=== PATIENT | female | born 1965 | race Caucasian/White ===

== ENCOUNTER 2016-08-01 07:44 | Emergency (ER) | payer OTHER ==
[~2016-08-01] VITALS: Ht 167.6 cm; Wt 79.5 kg
[2016-08-01 07:45] VITALS: BP 171/98; RESP 15; O2SAT 99
--- NOTE | 2016-08-01 07:56 | ED.REPORT ---
HPI-Ear Pain/Problem/FB Date of Service August 01, 2016 ED Provider: Dr. Nikolai Torres The patient is a 51 year old female who presents to the ED due to left ear pain onset a few days ago. Pt reports left ear discharge and tenderness. She is not generally prone to ear infections and hasn't been swimming recently. She is able to open and close her jaw without complication. Pt denies fever, chills, and dizziness. Nursing Notes Stated Complaint: EAR INFECTION Chief Complaint: ENT & Mouth Nursing Notes Reviewed: Yes Allergies: Coded Allergies: No Known Allergies (Unverified , 08/01/16) Scheduled Ciprofloxacin/Hydrocortisone Otic Susp (Cipro HC Otic Susp) 10 Ml Drops.susp 3 DROP LEFT_EAR BID for 7 days Scheduled PRN Naproxen (Naproxen) 500 Mg Tab 500 MG PO BID PRN PRN For Pain General Time Seen by MD: 07:55 Chief Complaint Ear problem left Hx Obtained From: Patient Arrived By: Walk-in Onset Occurred: 2 days ago Symptom Duration: Since onset Location: : Entire ear Quality: Painful Severity: Current: Mild Recent Healthcare: No recent doctor visit, No recent hospitalization Similar Sx Previous: No Past Medical History Past Medical History denies Past Surgical History Rotator cuff surgery 2 C-sections Carpel tunnel bilateral Smoking History Unknown if Ever Smoker Social History Other Social History: From out of town Ambulatory Status Independent Review of Systems Constitutional: Denies: Chills, Fever Ears / Nose / Throat: Reports: Ear drainage left, Earache left, Denies: Ear drainage right, Hearing loss left, Nasal congestion Complete sys rev & neg: except as marked. Additional Review of Systems Neurologic: Denies: Dizziness Physical Exam Physical Exam Notes: Initial Vital Signs Vital Signs (First) Date Time Temp Pulse Resp B/P Pulse Ox O2 Delivery O2 Flow Rate FiO2 08/01/16 07:45 35.8 94 15 171/98 99 Room Air Initial VS: Reviewed General/Constitutional: Awake, Alert, Cooperative ENT: Tympanic membs NL pain with manipulation of left earlobe no mastoid swelling, redness, tenderness purulent debris and macerated ear canal Head / Eyes: Normocephalic, PERRL, EOMI Neck: Atraumatic, Supple Skin: Warm, Dry Neurologic: Oriented X3, Speech NL, No motor deficits Upper Extremity / MS: Full range of motion, No deformity Lower Extremity / Pelvis / MS: Full range of motion, No deformity Re-Eval/Medical Decision Counseled Regarding: Diagnosis, Lab results, Need for follow-up, When/why to return to ED Discharge & Departure Primary Impression: Rhinitis Rhinitis type: unspecified Qualified Code: J31.0 - Chronic rhinitis Disposition: Home Discharge Condition All VS Reviewed: Yes Condition: Stable Patient Instructions: Otitis Externa (ED) Additional Instructions: Thank you for entrusting us with your care today. You have an ear infection called otitis externa. I am sending you home with antibiotics and ear drops. Use hot compresses and Tylenol to help with pain as well. Please take medication as directed. Return to the Emergency Department if you experience any new or worsening symptoms. I hope you feel better soon! Referrals: Naveen Burr MD [facility] Scribe Attestation Portion of this note were transcribed by Eladia Porter. I, Dr. Torres, personally performed the history, physical exam, and medical decision-making: I reviewed and confirmed the accuracy for the information in the transcribed note. Signed by: chad Lopez, 08/01/16 0900 copies to: Naveen Burr MD; [facility] Nikolai Torres DO August 01, 2016 07:56 Eladia Porter August 01, 2016 08:05
[2016-08-01] MEDS ORDERED: CIPR10DR LEFT_EAR (08:10)
[2016-08-01] MEDS ORDERED: NPR500T PO (08:10)
== END 2016-08-01 08:34 | disposition home or self-care (01) ==
LOC: SED 07:44
DX: J31.0 Chronic rhinitis (principal)

== ENCOUNTER → 2016-11-22 | Day surgery (SDC) | payer OTHER ==
[~2016-11-22] VITALS: Ht 167.6 cm; Wt 77.0 kg
[~2016-11-22] MED LIST: BLAC160C PO; CITA20TA11 PO; LORA1TAB PO; Sodium Chloride LOK Flush 10 mL Syringe IV PRN; VARI1940 SQ; fentaNYL-PF 50 mCg/mL 2 mL Inj IVPUSH PRN
[2016-11-22 08:07] VITALS: BP 133/85; PULSE 73; RESP 16; O2SAT 97
[2016-11-22] MEDS: 0.9% Sodium Chloride 1,000 ML IV PRN ×2 (08:36→08:42)
[2016-11-22 08:54] VITALS: BP 102/63; PULSE 73; RESP 14; O2SAT 98
[2016-11-22 09:03] VITALS: BP 94/76; PULSE 85; RESP 16; O2SAT 100
--- NOTE | 2016-11-22 09:12 | ENDO ---
[address] [address] ENDOSCOPY PROCEDURE PATIENT: DINO CORTES : 1965 MR#: [id number] ADMIT: 11/22/2016 JOB ID: [id number] DATE OF SERVICE: 11/22/2016 PRIMARY PROVIDER: JB Devine. PROCEDURE: Colonoscopy. INDICATIONS: A 51-year-old female who reports for colon cancer screening. EQUIPMENT: PCF H 180 AL. SEDATION: 1. Versed 7 mg 2. Fentanyl 125 mcg. COMPLICATIONS: None identified. BOWEL PREPARATION: Fair, adequate exam. PROCEDURE IN DETAIL: After the risks and benefits explained, written and verbal informed consent was obtained. The patient was brought into the endoscopy suite and placed into the left lateral decubitus position. Sedation was achieved as above. Digital rectal examination was accomplished. No significant pathology appreciated. The scope was introduced into the rectum and advanced under direct visualization to the level of the cecum, as identified by the appendiceal orifice and ileocecal valve. The scope was slowly withdrawn to carefully examine the mucosa for any defects or lesions. Retroflexed views were avoided in the rectum. Multiple direct views were made through the dentate line for exclusion of pathology. The colon was decompressed. The scope removed from the patient who tolerated the procedure well. FINDINGS: No significant polyps, mass lesions or inflammatory features identified throughout. ENDOSCOPIC DIAGNOSIS: Visually unremarkable colonoscopy to cecum. RECOMMENDATIONS: Repeat colonoscopy in 10 years' time, sooner should symptoms warrant an earlier exam. Cc: Dino Cortes
== END | disposition home or self-care (01) ==
LOC: END 00:18
PROVIDERS: ATTEND Internal Medicine Gastroenterology
DX: Z12.11 Encounter for screening for malignant neoplasm of colon (principal); Z83.71 Family history of colonic polyps; R03.0 Elevated blood-pressure reading, without diagnosis of hypertension; E78.2 Mixed hyperlipidemia; F41.8 Other specified anxiety disorders; K21.9 Gastro-esophageal reflux disease without esophagitis; Z87.891 Personal history of nicotine dependence
CPT/HCPCS: 99152; 99153; G0121; J2250; J3010; J7030